=== PATIENT | female | born 1995 | race Two or more races ===

== ENCOUNTER 2025-06-24 08:50 | Emergency (ER) | payer MEDICAID, OTHER ==
[~2025-06-24] VITALS: Ht 170.2 cm; Wt 75.0 kg
[2025-06-24 09:16] VITALS: BP 107/72; PULSE 96; RESP 17; TEMP 99; O2SAT 96
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
[2025-06-24] MEDS ORDERED: ACET-1304 PO (10:00)
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
== END 2025-06-24 10:00 | disposition home or self-care (01) ==
LOC: ER 08:50 → EDBD 08:50 → ER 09:58
DX: O26.891 Other specified pregnancy related conditions, first trimester (principal); O9A.211 Injury, poisoning and certain other consequences of external causes complicating pregnancy, first trimester; S39.91XA Unspecified injury of abdomen, initial encounter; Z79.899 Other long term (current) drug therapy; Z3A.10 10 weeks gestation of pregnancy; V43.52XA Car driver injured in collision with other type car in traffic accident, initial encounter; Y93.89 Activity, other specified; Y92.488 Other paved roadways as the place of occurrence of the external cause; Y99.8 Other external cause status
CPT/HCPCS: 76801